=== PATIENT | male | born 1995 | race Caucasian/White ===

== ENCOUNTER 2017-01-05 22:41 | Emergency (ER) | payer MEDICAID ==
[~2017-01-05] VITALS: Ht 167.6 cm; Wt 59.0 kg
[2017-01-05 22:53] VITALS: BP 113/72
== END 2017-01-05 23:20 | disposition home or self-care (01) ==
LOC: ER 22:41
DX: Q18.1 Preauricular sinus and cyst (principal)
CPT/HCPCS: A4606; Z7502; Z7610

== ENCOUNTER 2018-09-20 23:26 | Emergency (ER) ==
[~2018-09-20] VITALS: Ht 167.6 cm; Wt 68.0 kg
[2018-09-21 00:23] LABS: BASOPHILS % (AUTO) 0.3 % (0.0-2.0); HEMATOCRIT 44 % (39-51); HEMOGLOBIN 15.4 g/dL (13.5-17.5); LYMPHOCYTES # (AUTO) 2.3 /CMM (0.8-4.8); LYMPHOCYTES % (AUTO) 36.6 % (20.0-44.0); MEAN CORPUSCULAR HGB CONC 35 g/dl (31.0-36.0); MEAN CORPUSCULAR VOLUME 87 fL (80-96); MONOCYTES # (AUTO) 0.6 /CMM (0.1-1.30); MONOCYTES % (AUTO) 9.3 % (2.0-12.0); NEUTROPHILS # (AUTO) 3.3 /CMM (1.8-8.9); NEUTROPHILS % (AUTO) 52.8 % (43.0-81.0); PLATELET COUNT (AUTO) 166 /CMM (150-450); RED BLOOD CELL COUNT(AUTO) 5.05 MIL/uL (4.5-6.0); WHITE BLOOD COUNT (AUTO) 6.3 K/uL (4.3-11.0)
[2018-09-21] MEDS ORDERED: ASPIRIN 325 MG TABLET ONE (00:29)
[2018-09-21] MEDS ORDERED: ASPIRIN 325 MG TABLET PO ONE (00:30)
--- NOTE | 2018-09-21 00:30 | NUR ---
BIB FOR C/O UPPER BACK PAIN RADIATING TO THE UPPER CHEST X30 MIN [employer]. NO OTHER MED HX. PLPACED ON A MONIRTOR, VSS. WILL CONT TO MONITOR ,
[2018-09-21 00:33] LABS: CALCIUM, SERUM 8.6 mg/dL (8.5-10.1); CARBON DIOXIDE 28 mmol/L (21-32); CHLORIDE 103 mmol/L (98-107); CREATININE 1.4 mg/dL (0.6-1.3); GLUCOSE 94 mg/dL (74-106); POTASSIUM 3.4 mmol/L (3.5-5.1); SODIUM SERUM 141 mmol/L (136-145); UREA NITROGEN, BLOOD 15 mg/dL (7-18)
[2018-09-21 00:49] LABS: ALANINE AMINOTRANSFERASE 27 U/L (12-78); ALBUMIN 4.3 g/dL (3.4-5.0); ALKALINE PHOSPHATASE 90 U/L (46-116); ASPARTATE AMINOTRANSFERASE 11 U/L (15-37); BILIRUBIN,TOTAL 0.4 mg/dL (0.2-1.0); LIPASE 91 U/L (73-393); TOTAL PROTEIN, SERUM 7.5 g/dL (6.4-8.2)
--- NOTE | 2018-09-21 01:25 | NUR ---
Patient discharged to home in stable condition. Written and verbal after care instructions given. Patient verbalizes understanding of instruction.
[2018-09-21 01:43] VITALS: BP 118/67
== END 2018-09-21 01:25 | disposition home or self-care (01) ==
LOC: ER 23:28
DX: R07.89 Other chest pain (principal); F10.10 Alcohol abuse, uncomplicated; F17.200 Nicotine dependence, unspecified, uncomplicated; Y90.9 Presence of alcohol in blood, level not specified
CPT/HCPCS: 36415; 71045-TC; 80053-TC; 83690-TC; 84484-TC; 85025-TC; 85610-TC; 85730-TC

== ENCOUNTER 2019-03-23 22:23 | Emergency (ER) | payer MEDICAID, OTHER ==
[~2019-03-23] VITALS: Ht 167.6 cm; Wt 75.7 kg
--- NOTE | 2019-03-23 23:15 | NUR ---
PT. CAME IN W/ MOM C/O RED BUMP ABSCESS THAT HAS BEEN GROWING OVER 2 DAYS ON CO[place] REGION. 05/13 PAIN. SKIN IS NOT BROKEN. WARM TO THE TOUCH. AAOX4. NAD. NO SOB. CONNECTED TO MONITOR.
[2019-03-23] MEDS ORDERED: LIDOCAINE 1%-EPI 1:100,000 20 ML VIAL ONE (23:18)
[2019-03-23] MEDS ORDERED: TDAP [DIPH/PERTUSSIS/TET] 0.5 ML VIAL IM ONE ×2 (23:19→23:30)
--- NOTE | 2019-03-23 23:20 | NUR ---
MISAEL TRIMBLE AT BEDSIDE
[2019-03-23] MEDS ORDERED: CEPHALEXIN MONOHYDRATE 500 MG CAPSULE PO ONE (23:44)
[2019-03-23] MEDS ORDERED: SULFAMETH/TRIMETH 800/160 MG 1 UDTAB TABLET ONE (23:44)
[2019-03-24] MEDS ORDERED: SULFAMETH/TRIMETH 800/160 MG 1 UDTAB TABLET PO ONE
[2019-03-24] MEDS ORDERED: CEPHALEXIN MONOHYDRATE 500 MG CAPSULE PO ONE
--- NOTE | 2019-03-24 00:06 | NUR ---
PATIENT GIVEN PRESCRIPTIONS AND EXPLAINED TO.
--- NOTE | 2019-03-24 00:06 | NUR ---
Patient discharged to home in stable condition. Written and verbal after care instructions given. Patient verbalizes understanding of instruction.
[2019-03-24 00:07] VITALS: BP 124/76
== END 2019-03-24 00:07 | disposition home or self-care (01) ==
LOC: ER 22:31
DX: L05.01 Pilonidal cyst with abscess (principal); F17.200 Nicotine dependence, unspecified, uncomplicated
CPT/HCPCS: 10080; 90471; 90715; 99284; A6407; J3490

== ENCOUNTER 2019-03-25 23:15 | Emergency (ER) | payer MEDICAID ==
[~2019-03-25] VITALS: Ht 167.6 cm; Wt 760.2 kg
[2019-03-25 23:30] VITALS: BP 126/68
--- NOTE | 2019-03-25 23:37 | NUR ---
PT AAOX4. AMBULATORY. PT C/O WOUND CHECK FOR PILONIDAL CYST. PT WAS SEEN HERE 2 DAYS AGO AND SAID HE WAS TOLD TO COME BACK TO HAVE THE CYCT CHECKED OUT AND CLEANEDED. AWAITING MD FOR EVAL.
== END 2019-03-25 23:52 | disposition home or self-care (01) ==
LOC: ER 23:16
DX: L05.01 Pilonidal cyst with abscess (principal); F10.10 Alcohol abuse, uncomplicated; F17.200 Nicotine dependence, unspecified, uncomplicated; Y90.9 Presence of alcohol in blood, level not specified

== ENCOUNTER 2019-04-28 23:14 | Emergency (ER) | payer MEDICAID ==
[~2019-04-28] VITALS: Ht 167.6 cm; Wt 72.6 kg
--- NOTE | 2019-04-28 23:34 | NUR ---
PT PRESENTED TO THE ER WITH A C/O RT BUTTOCK ABCESS/WOUND.
[2019-04-28] MEDS ORDERED: LIDOCAINE 1%-EPI 1:100,000 20 ML VIAL ONE (23:51)
[2019-04-28] MEDS: LIDOCAINE 1%-EPI 1:100,000 20 ML VIAL TP ONE ×2 (23:57→23:58)
--- NOTE | 2019-04-29 00:02 | NUR ---
Ward CRAIG PA-C IS AT THE BEDSIDE FOR I&D.
[2019-04-29 00:32] VITALS: BP 123/87
--- NOTE | 2019-04-29 00:32 | NUR ---
Patient discharged to home in stable condition. Written and verbal after care instructions given. Patient verbalizes understanding of instruction AND RX. PT AMBULATED OUT WITH A STEADY GAIT. PT'S MOTHER IS WITH HIM AND WILL DRIVE THE PT HOME. VSS. NAD NOTED.
== END 2019-04-29 00:33 | disposition home or self-care (01) ==
LOC: ER 23:21
DX: L02.31 Cutaneous abscess of buttock (principal); F17.200 Nicotine dependence, unspecified, uncomplicated
CPT/HCPCS: 10060; 99283; A6253; A6403; A6407; J3490

== ENCOUNTER 2019-08-26 15:49 | Emergency (ER) | payer MEDICAID ==
[~2019-08-26] VITALS: Ht 170.2 cm; Wt 72.6 kg
--- NOTE | 2019-08-26 16:00 | NUR ---
CALLED TO TRIAGE, NO ANSWER
[2019-08-26] MEDS ORDERED: LIDOCAINE 1% INJ 50 ML MDV IJ ONE ×2 (16:12→16:30)
[2019-08-26] MEDS ORDERED: BUPIVACAINE MPF W/EPI 0.25% 30 ML VIAL ONE (16:12)
[2019-08-26] MEDS ORDERED: BUPIVACAINE MPF W/EPI 0.25% 30 ML VIAL IJ ONE (16:30)
[2019-08-26 16:42] VITALS: BP 116/64
--- NOTE | 2019-08-26 16:42 | NUR ---
Patient discharged to home in stable condition. Written and verbal after care instructions given. Patient verbalizes understanding of instruction.
== END 2019-08-26 16:44 | disposition home or self-care (01) ==
LOC: ER 15:53
DX: L02.31 Cutaneous abscess of buttock (principal)
CPT/HCPCS: 10060; 99283; A6407; J3490 ×2